=== PATIENT | male | born 1980 | race Caucasian/White ===

== ENCOUNTER 2025-01-21 15:58 | Emergency (ER) | payer OTHER, SELFPAY ==
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
[2025-01-21 16:02] VITALS: BP 161/96; PULSE 73; RESP 18; TEMP 36.4; O2SAT 99
[2025-01-21 16:16] VITALS: BP 141/98; PULSE 78; RESP 17; O2SAT 97
--- NOTE | 2025-01-21 16:37 | ECG_ITS ---
Test Date: 2025-01-21 16:45:09 Measurements Intervals [place] Rate: 65 P: 51 MD: 147 QRS: 8 QRSD: 84 T: 40 QT: 412 QTc: 431 Interpretive Statements SINUS RHYTHM NORMAL ECG No previous ECG available for comparison Electronically Signed On 01-21-2025 21:04:45 CDT by Cirilo Lovett D.O.
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
[2025-01-21 17:37] VITALS: BP 121/98; PULSE 68; RESP 17; O2SAT 98
== END 2025-01-21 18:05 | disposition home or self-care (01) ==
LOC: ANHED 17:46
DX: S29.9XXA Unspecified injury of thorax, initial encounter (principal); R07.89 Other chest pain; V49.50XA Passenger injured in collision with unspecified motor vehicles in traffic accident, initial encounter
CPT/HCPCS: 71046; 93005; 99283